=== PATIENT | male | born 1965 | race Hispanic/Latino ===

== ENCOUNTER 2017-05-04 18:50 | Emergency (ER) | payer MEDICAID, OTHER ==
[2017-05-04 19:26] VITALS: TEMP 97.8; O2SAT 95
[2017-05-04] MEDS ORDERED: Bacitracin Ointment 30 GM TUBE TOP ONE (20:00)
[2017-05-04 20:30] LABS: BASO % 0.6 % (0.0-2.0); EOS # 0.2 K/uL (0.0-0.7); EOS % 2.4 % (0.0-4.0); HEMATOCRIT 42.2 % (35.0-51.0); LYMPH # 1.8 K/uL (1.0-4.3); LYMPH % 25.1 % (20.0-40.0); MEAN CELL VOLUME 94.2 fL (80.0-94.0); MEAN CORPUSCULAR HEMOGLOBIN 32.7 pg (27.0-31.0); MEAN CORPUSCULAR HGB CONC 34.7 g/dL (33.0-37.0); MEAN PLATELET VOLUME 6.3 fL (7.2-11.7); MONO # 0.8 K/uL (0.0-0.8); NRBC % 0.1 % (0.0-2.0); RED CELL DISTRIBUTION WIDTH 14.2 % (11.5-14.5)
[2017-05-04 20:43] LABS: URINE BILIRUBIN NEGATIVE (NEGATIVE); URINE BLOOD NEGATIVE (NEGATIVE); URINE COLOR Yellow (YELLOW); URINE GLUCOSE (UA) NORMAL (Normal); URINE KETONE NEGATIVE (NEGATIVE); URINE LEUKOCYTE ESTERASE NEG Leu/uL (Negative); URINE PROTEIN NEGATIVE (NEGATIVE); URINE UROBILINOGEN NORMAL mg/dL (0.2-1.0)
[2017-05-04] MEDS ORDERED: Bacitracin 500 Units/gm Oint Foilpak UD ONE (20:44)
[2017-05-04 20:49] LABS: CHLORIDE 105 mmol/L (98-107); SODIUM 146 mmol/L (132-148)
[2017-05-04 20:50] LABS: POTASSIUM 4.3 mmol/L (3.6-5.2)
[2017-05-04 20:52] LABS: ALB/GLOB RATIO 1.5 (1.0-2.1); ALKALINE PHOSPHATASE 68 U/L (38-126); ALT/SGPT 100 U/L (21-72); AST/SGOT 85 U/L (17-59); BILIRUBIN,TOTAL 0.7 mg/dL (0.2-1.3); BLOOD UREA NITROGEN 19 mg/dL (9-20); CALCIUM 9.4 mg/dl (8.6-10.4); CARBON DIOXIDE 21 mmol/L (22-30); GFR AFRICAN-AMERICAN > 60; GLUCOSE,RANDOM 82 mg/dL (75-110); TOTAL PROTEIN 8.4 g/dL (6.3-8.3)
[2017-05-04 20:53] LABS: ALCOHOL SERUM 256 mg/dl (0-10)
--- NOTE | 2017-05-04 21:23 | C.PDOC ---
History Of Present Illness 51 year old male presents to the ED seeking detox from alcohol. Patient admits to drinking prior to arrival and denies physical complaints, suicidal, or homicidal ideations. upon arrival, pt awake, alert ambulatory, joking with staff in nad. Time Seen by Provider: 05/04/17 21:00 Chief Complaint (Nursing): Substance Abuse History Per: Patient History/Exam Limitations: no limitations Suicide/Self Injury Attempted (Context): None Modifying Factor(s): Alcohol Severity: None Pain Scale Rating Of: 0 Associated Symptoms: denies: Suicidal Thoughts, Suicidal Plan Involuntary Hold By: None Recent travel outside of the [place]: No Past Medical History Reviewed: Historical Data, Nursing Documentation, Vital Signs Vital Signs: Last Vital Signs Temp 97.8 F 05/04/17 19:23 Pulse 98 H 05/04/17 22:10 Resp 18 05/04/17 22:10 BP 145/87 05/04/17 22:10 Pulse Ox 95 05/04/17 22:50 - Medical History PMH: Asthma Denies: HTN (Patient believes pressure is high due to drinking) - [facility] Procedures ALCOHOL DETOXIFICATION (06/16/14) DETOXIFICATION SERVICES FOR SUBSTANCE ABUSE TREATMENT (04/28/16) OTHER GROUP THERAPY (06/16/14) Family History: States: Unknown Family Hx - Social History Hx Tobacco Use: No Hx Alcohol Use: Yes Hx Substance Use: Yes - Immunization History Hx Tetanus Toxoid Vaccination: Yes (2 years ago) Hx Influenza Vaccination: Yes Hx Pneumococcal Vaccination: No Review Of Systems Constitutional: Negative for: Fever, Chills Cardiovascular: Negative for: Chest Pain, Palpitations Respiratory: Negative for: Cough, Shortness of Breath Gastrointestinal: Negative for: Nausea, Vomiting, Abdominal Pain, Diarrhea Physical Exam - Physical Exam Appears: Non-toxic, No Acute Distress, Other (EtOH on breath ) Skin: Warm, Dry Head: Atraumatic, Normacephalic Eye(s): bilateral: Normal Inspection Oral Mucosa: Moist Neck: Supple Chest: Symmetrical, No Deformity Cardiovascular: Rhythm Regular, No Murmur Respiratory: Normal Breath Sounds, No Rales, No Rhonchi, No Wheezing Gastrointestinal/Abdominal: Soft, No Tenderness, No Distention, No Guarding, No Rebound Neurological/Psych: Oriented x3 Gait: Steady ED Course And Treatment - Laboratory Results Result Diagrams: 05/04/17 20:26 05/04/17 20:26 O2 Sat by Pulse Oximetry: 95 (room air ) Progress Note: Labs were ordered and patient was placed on ED observation. Medical Decision Making Medical Decision Making: case discussed with workers compensation adjuster. no detox beds available. upon notifing patient, pt requests to be d/c. observed 4 hours in er. ambulatory with steady gait, clinically sober. ED OBSERVATION Date of observation admission: 05/04/17 Time of observation admission: 21:00 - Observation admission statement Patient is being placed in observation because:: patient is intoxicated. - Goals of Observation Goals of observation are:: sobriety. Disposition - Disposition Disposition: HOME/ ROUTINE Disposition Time: 22:02 Condition: STABLE Additional Instructions: please follow up with your doctor. return to er with worsneing symptoms or concerns. Instructions: Abuse of Alcohol (ED) Forms: [employer] [facility] (Bel[place]ian) - Clinical Impression Clinical Impression: Alcohol abuse - Scribe Statement The provider has reviewed the documentation as recorded by the Scribe Lily Tovar All medical record entries made by the Scribe were at my direction and personally dictated by me. I have reviewed the chart and agree that the record accurately reflects my personal performance of the history, physical exam, medical decision making, and the department course for this patient. I have also personally directed, reviewed, and agree with the discharge instructions and disposition.
[2017-05-04 22:31] VITALS: BP 145/87; PULSE 98; RESP 18
== END 2017-05-04 22:17 | disposition home or self-care (01) ==
LOC: C.ER 18:50
DX: F10.10 Alcohol abuse, uncomplicated (principal); Y90.8 Blood alcohol level of 240 mg/100 ml or more